=== PATIENT | female | born 1960 | race Caucasian/White ===

== ENCOUNTER 2021-04-08 04:52 | Inpatient (IN) | payer BC, OTHER ==
[~2021-04-08] VITALS: Ht 162.6 cm; Wt 59.0 kg
[2021-04-08 04:53] VITALS: BP 115/61
[2021-04-08 05:36] LABS: ABSOLUTE NEUTROPHILS 3.9 thou/uL (1.4-8.2); EOSINOPHILS 3.6 % (0.0-3.0); HEMATOCRIT 39.4 % (37.0-47.0); HEMOGLOBIN 13.1 gm/dL (12.0-15.0); LYMPHOCYTES 44.1 % (24.0-44.0); MCH 30.5 pg (26.0-34.0); MCHC 33.2 g/dL (28.0-37.0); MONOCYTES 8.7 % (1.0-8.0); PLATELET COUNT 271 thou/uL (150-400); POLYS 42.6 % (36.0-66.0); RBC 4.28 mil/uL (4.20-5.00); RDW 13.3 % (10.5-14.5); WBC 9.3 thou/uL (4.0-11.0)
[2021-04-08 05:41] LABS: URINE BILIRUBIN NEGATIVE (Negative); URINE BLOOD TRACE (Negative); URINE CLARITY CLEAR; URINE COLOR YELLOW; URINE GLUCOSE-RANDOM* NEGATIVE (Negative); URINE KETONES NEGATIVE (Negative); URINE LEUKOCYTES-REFLEX TRACE (Negative); URINE NITRITE-REFLEX NEGATIVE (Negative); URINE PROTEIN (DIPSTICK) NEGATIVE (Negative); URINE SPECIFIC GRAVITY <= 1.005 (1.005-1.035); URINE UROBILINOGEN 0.2 E.U./dl (0.2-1.0)
[2021-04-08 05:48] LABS: CALCIUM 8.7 mg/dL (8.5-10.1); POTASSIUM 3.6 mmol/L (3.5-5.1)
[2021-04-08 05:54] LABS: ALBUMIN 3.7 g/dL (3.4-5.0); TOTAL BILIRUBIN 0.2 mg/dL (0.2-1.0); TOTAL PROTEIN 6.8 g/dL (6.4-8.2)
[2021-04-08 08:36] LABS: AMYLASE 252 U/L (25-115); CHOLESTEROL 193 mg/dL (<200); HDL CHOLESTEROL 62 mg/dL (>40); LDL CHOLESTEROL 112 mg/dL (<100); TC:HDL 3.1 Ratio (Not establshd); TRIGLYCERIDE 98 mg/dL (<150); VLDL 20 mg/dL (<40)
[2021-04-08] MEDS ORDERED: ESTRACE1 MG PO (09:54)
[2021-04-08] MEDS ORDERED: SUBVENITE150 MG PO (09:54)
[2021-04-08 15:59] VITALS: BP 94/48
[2021-04-09 03:58] LABS: CALCIUM 7.8 mg/dL (8.5-10.1); CREATININE 0.7 mg/dL (0.6-1.0); POTASSIUM 4.2 mmol/L (3.5-5.1)
[2021-04-09 04:04] LABS: MAGNESIUM 2.2 mg/dL (1.8-2.4); TOTAL BILIRUBIN 0.3 mg/dL (0.2-1.0); TOTAL PROTEIN 6.1 g/dL (6.4-8.2)
[2021-04-09 07:45] VITALS: BP 103/62
--- NOTE | 2021-04-09 09:28 | EKG ---
[address] [place] [address] ELECTROCARDIOGRAM REPORT Name: JASE KIRK Room #: 459-P ADM IN M.R.#: [id number] Admission: 04/08/21 Attend Phys: Tram Swanson Discharge: Date of : 64 Report #: [id number] [facility] ED Test Date: 2021-04-08 Test Time: 05:10:18 Pat Name: JASE KIRK Department: Room: [facility] Gender: F Quality Analyst: : 1960 Requested By: Abdullahi Tovar Order Number: [id number] MD: Jordon Fair Measurements Intervals [place] Rate: 56 P: 60 NE: 132 QRS: 76 QRSD: 112 T: 55 QT: 458 QTc: 443 Interpretive Statements Sinus bradycardia Otherwise no significant abnormality No previous ECG available for comparison Electronically Signed On 04-09-2021 9:28:49 CDT by Jordon Fair [email or web address] <ELECTRONICALLY SIGNED> By: Jordon Fair MD, [facility] 04/09/21 0928 0510 0510 Jordon Fair MD, FAC /EPI
[2021-04-09 16:24] VITALS: BP 108/61
[2021-04-09 21:28] VITALS: BP 103/47
[2021-04-10 02:06] LABS: HAV IgM AB (ANTI-HAV IgM) Negative (Negative); HEPATITIS B SURFACE AG Negative (Negative); HEPATITIS C VIRUS AB <0.1 (0.0-0.9)
[2021-04-10 05:47] LABS: ALBUMIN 2.8 g/dL (3.4-5.0); CALCIUM 7.9 mg/dL (8.5-10.1); CREATININE 0.8 mg/dL (0.6-1.0); MAGNESIUM 1.9 mg/dL (1.8-2.4); POTASSIUM 3.3 mmol/L (3.5-5.1); TOTAL BILIRUBIN 0.3 mg/dL (0.2-1.0); TOTAL PROTEIN 5.7 g/dL (6.4-8.2)
[2021-04-10 07:35] VITALS: BP 93/57
[2021-04-10] MEDS ORDERED: PROTONIX40 M4 PO (09:01)
[2021-04-10 10:14] VITALS: BP 93/57
== END 2021-04-10 14:56 | disposition home or self-care (01) | DRG 440 ==
LOC: ER 04:52 → 4W 10:18 → EROBS 10:18 → 4W 04-09 08:02
PROVIDERS: Emergency Medicine; ADMIT Hospitalist; ATTEND Hospitalist
DX: K85.90 Acute pancreatitis without necrosis or infection, unspecified (principal); F12.90 Cannabis use, unspecified, uncomplicated; E78.00 Pure hypercholesterolemia, unspecified; R74.01 Elevation of levels of liver transaminase levels; K59.00 Constipation, unspecified; Z20.822 Contact with and (suspected) exposure to COVID-19; Z90.49 Acquired absence of other specified parts of digestive tract
CPT/HCPCS: 10040